=== PATIENT | female | born 1965 | race African-American/Black ===

== ENCOUNTER 2019-08-29 21:27 | Emergency (ER) | payer MEDICAID ==
[~2019-08-29] VITALS: Ht 154.9 cm; Wt 79.4 kg
[2019-08-29] MEDS ORDERED: cloNIDine HCL 0.1 MG TAB ONE (21:45)
[2019-08-29] MEDS ORDERED: cloNIDine HCL 0.1 MG TAB PO ONE (22:30)
[2019-08-29 23:45] VITALS: BP 188/90
[2019-08-29] MEDS ORDERED: cefTRIAXone SOD 1,000 MG VL IM ONE (23:45)
[2019-08-29] MEDS ORDERED: KETOROLAC TROMETH 60MG/2ML VIAL IM ONE (23:45)
== END 2019-08-30 00:02 | disposition home or self-care (01) ==
LOC: ER 21:27
DX: H66.92 Otitis media, unspecified, left ear (principal); F17.210 Nicotine dependence, cigarettes, uncomplicated; Z87.442 Personal history of urinary calculi
CPT/HCPCS: 96372; 99284; J0696; J1885